=== PATIENT | female | born 1960 | race Caucasian/White ===

== ENCOUNTER 2017-10-24 16:44 | Emergency (ER) | payer BC ==
[2017-10-24 16:57] VITALS: TEMP 98.2
[2017-10-24] MEDS ORDERED: OXYCODONE/APAP 5/325 TAB PO ONE (16:58)
--- NOTE | 2017-10-24 17:18 | EDPHY ---
H & P Time Seen by Provider: 10/24/17 17:17 HPI/ROS: CHIEF COMPLAINT: Right shoulder pain post skiing fall HISTORY OF PRESENT ILLNESS: 57-year-old female arrives via private vehicle complaining of acute right shoulder pain after she was skiing at [place], fell onto her right shoulder, complaining of immediate right shoulder pain. No head injury. No loss of consciousness. She did need to be evacuated by skidder and sled. Arrives via private vehicle. Able to ambulate. No lower extremity pain. No hip or pelvic pain. No straddle injury. No low back pain. No midline C-spine pain. She is visiting from [place], [place]. REVIEW OF SYSTEMS: A ten point review of systems was performed and is negative with the exception of the items mentioned in the HPI PAST MEDICAL/SURGICAL HISTORY: no anticoagulant use, no relevant medical/ surgical history SOCIAL HISTORY: denies alcohol use at time of incident PHYSICAL EXAM 1) GENERAL: Well-developed, well-nourished, alert and oriented. Answering questions appropriately. 2) HEAD: Normocephalic, atraumatic 3) HEENT: Pupils equal, round, reactive to light bilaterally. Negative Horners. 4) NECK: No cervical collar is on. Posterior cervical spine is nontender, no stepoff, no effusion. Full range of motion which does not elicit any midline cervical spine pain, no posterior midline tenderness, no step-off. 5) LUNGS: Clear to auscultation bilaterally, no wheezes, no rhonchi, no retractions. No obvious signs of trauma. No chest wall pain. No flaring, no grunting. Moving symmetrically. No crepitus. 6) HEART: [Regular rate and rhythm, 7) ABDOMEN: No guarding, no rebound, no focal tenderness, no peritoneal signs, no signs of trauma, no ecchymosis 8) MUSCULOSKELETAL: Right upper extremity: Sling in place, tender to palpation shoulder and proximal humerus. No deformity no step-off. Intact skin no tenting. No puncture wound no bleeding. Clavicle nontender. Remainder of distal humerus nontender, forearm wrist nontender. Radial ulnar median nerve function intact. Bilateral hips nontender with full pain-free range of motion including axial loading of the acetabulum. Moving all extremities, no focal areas of tenderness, no obvious trauma. 9) BACK: No midline vertebral tenderness, no fluctuance, no step-off, no obvious trauma, no visual or palpable abnormality. 10) SKIN: No laceration. No abrasion DIFFERENTIAL DIAGNOSIS: In no particular order including but not limited to fracture, sprain, strain , dislocation Smoking Status: Never smoked Constitutional: Initial Vital Signs Temperature (C) 36.8 C 10/24/17 16:54 Heart Rate 78 10/24/17 16:54 Respiratory Rate 17 10/24/17 16:54 Blood Pressure 135/70 H 10/24/17 16:54 O2 Sat (%) 98 10/24/17 16:54 O2 Delivery Mode Room Air Allergies/Adverse Reactions: No Known Allergies Allergy (Unverified 10/24/17 16:54) Home Medications: Medication Instructions Recorded Omeprazole 10/24/17 oxyCODONE/APAP 5/325 [Percocet 1 tab PO Q6 #10 tab 10/24/17 5/325] MDM/Departure - MDM Imaging: I viewed and interpreted images myself Procedures: Procedure: Splint An upper extremity sling was applied by ER geodetic technician. After application of the splint I returned and re-examined the patient. The splint was adequately immobilizing the joint and distal to the splint the patient's circulation and sensation were intact. Patient shows no signs of compartment syndrome. Was given orthopedic precautions. Medications Given: Discontinued Medications Oxycodone/Acetaminophen (Percocet 5/325) 1 tab PO EDNOW ONE Stop: 10/24/17 16:59 Last Admin: 10/24/17 17:00 Dose: 1 tab ED Course/Re-evaluation: Patient was re-evaluated by myself with serial exams. We reviewed her imaging studies showing a humeral neck fracture. She has been placed in a sling. She is returning to [place] tomorrow. This is a closed fracture. The importance of follow-up with orthopedics has been stressed. She will be discharged with analgesia, sling and copies of her x-rays. She is neurovascular intact. Care of patient under supervision of secondary supervising physician Dr Monika Lopez with whom I discussed case. - Depart Disposition: Home, Routine, Self-Care Clinical Impression: Downhill skiing Fracture of neck of right humerus Qualifiers: Encounter type: initial encounter Fracture type: closed Qualified Code(s): S42.211A - Unspecified displaced fracture of surgical neck of right humerus, initial encounter for closed fracture Condition: Good Instructions: Arm Fracture in Adults (ED) Additional Instructions: Return to the ER immediately if you experience discoloration, have worsening pain, numbness, tingling, or any other symptoms that concern you. If you received x-rays in the emergency department today, be advised, that ligamentous , tendon, muscular, and other non-bony injury cannot be fully ruled out. Try to keep your affected extremity elevated above the level of your chest, and keep cold packs on the affected area, for the next 48 hours. Prescriptions: oxyCODONE/APAP 5/325 [Percocet 5/325] 1 tab PO Q6 #10 tab Referrals: Andre Ramirez MD [Medical Doctor] - 2-3 days, call for appt. (Dr. Ramirez is orthopedic surgeon in [place]. You may also follow up with orthopedic surgeon in [place], [place].)
[2017-10-24] MEDS ORDERED: IBUPROFEN 800 MG TAB PO ONE (18:03)
[2017-10-24] MEDS ORDERED: OXYCODONE/APAP 5/325MG PREPACK#4 BTL TAKEHOME ONE (18:32)
[2017-10-24] MEDS: IBUPROFEN 600 MG TAB PO ONE ×2 (18:33→18:41)
[2017-10-24 18:42] VITALS: BP 113/66; PULSE 74; RESP 16; O2SAT 94
== END 2017-10-24 18:42 | disposition home or self-care (01) ==
DX: S42.211A Unspecified displaced fracture of surgical neck of right humerus, initial encounter for closed fracture (principal); V00.321A Fall from snow-skis, initial encounter; Y92.89 Other specified places as the place of occurrence of the external cause; Y99.8 Other external cause status; Y93.23 Activity, snow (alpine) (downhill) skiing, snowboarding, sledding, tobogganing and snow tubing